=== PATIENT | female | born 1985 | race Native Hawaiian/Other Pacific Islander ===

== ENCOUNTER 2022-10-24 15:40 | Emergency (ER) | payer OTHER ==
[~2022-10-24] VITALS: Ht 160 cm; Wt 44.5 kg
[2022-10-24 15:45] VITALS: TEMP 98
[2022-10-24 17:54] VITALS: BP 140/94
== END 2022-10-24 18:00 | disposition home or self-care (01) ==
LOC: ED 15:40
DX: S32.692A Other specified fracture of left ischium, initial encounter for closed fracture (principal); R60.0 Localized edema; W10.8XXA Fall (on) (from) other stairs and steps, initial encounter; Y93.02 Activity, running; Y92.89 Other specified places as the place of occurrence of the external cause
CPT/HCPCS: 99283

== ENCOUNTER 2023-03-24 12:48 | Emergency (ER) | payer OTHER ==
[~2023-03-24] VITALS: Ht 160 cm; Wt 52.6 kg
[2023-03-24 12:52] VITALS: BP 121/93; TEMP 98.3
== END 2023-03-24 15:02 | disposition home or self-care (01) ==
LOC: ED 12:48
DX: M54.50 Low back pain, unspecified (principal); Z91.419 Personal history of unspecified adult abuse
CPT/HCPCS: 80307; 81000; 96372; 99283; J1100; J1885